=== PATIENT | male | born 1980 | race American Indian/Alaskan Native ===

== ENCOUNTER 2018-11-11 13:17 | Emergency (ER) | payer OTHER ==
[2018-11-11] MEDS ORDERED: MOTRIN PO ONE (16:37)
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
[2018-11-11 20:09] VITALS: BP 127/68
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
== END 2018-11-11 20:09 | disposition home or self-care (01) ==
LOC: ED 13:17
DX: S13.4XXA Sprain of ligaments of cervical spine, initial encounter (principal); S76.011A Strain of muscle, fascia and tendon of right hip, initial encounter; E78.00 Pure hypercholesterolemia, unspecified; Z91.013 Allergy to seafood; Z88.6 Allergy status to analgesic agent; V89.2XXA Person injured in unspecified motor-vehicle accident, traffic, initial encounter; Y93.89 Activity, other specified; Y92.488 Other paved roadways as the place of occurrence of the external cause; Y99.8 Other external cause status
CPT/HCPCS: 72125; 99284